=== PATIENT | male | born 1955 | race Caucasian/White ===

== ENCOUNTER 2023-01-19 07:31 | Day surgery (SDC) | payer MEDICARE, BC ==
[~2023-01-19 07:31] MED LIST: Dextrose 5%-0.45% NaCl 1,000 ML IV SCH; Sodium Chloride 0.9% 10 ML Syringe FLUSH PRN; Sodium Chloride 0.9% 10 ML Syringe FLUSH SCH
[2023-01-19] MEDS ORDERED: Midazolam 1 MG/ML 2 ML SDV ONE (08:31)
[2023-01-19] MEDS ORDERED: fentaNYL 100 MCG/2 ML SDV ONE (08:31)
[2023-01-19] MEDS ORDERED: fentaNYL 100 MCG/2 ML SDV IV ONE ×2 (08:35→08:36)
[2023-01-19] MEDS ORDERED: Midazolam 1 MG/ML 2 ML SDV IV ONE ×3 (08:36→08:44)
== END 2023-01-19 10:14 | disposition home or self-care (01) ==
LOC: DL.ENDO 07:31
PROVIDERS: ATTEND Internal Medicine Gastroenterology
DX: Z12.11 Encounter for screening for malignant neoplasm of colon (principal); D12.4 Benign neoplasm of descending colon; I10 Essential (primary) hypertension; E78.00 Pure hypercholesterolemia, unspecified; I25.10 Atherosclerotic heart disease of native coronary artery without angina pectoris; G47.33 Obstructive sleep apnea (adult) (pediatric); I49.3 Ventricular premature depolarization; F79 Unspecified intellectual disabilities; E66.09 Other obesity due to excess calories; Z68.36 Body mass index [BMI] 36.0-36.9, adult; Z79.899 Other long term (current) drug therapy
CPT/HCPCS: 45385; J2250; J3010; J7042

== ENCOUNTER 2024-05-20 23:39 | Emergency (ER) | payer MEDICARE, BC ==
[2024-05-21] MEDS: diphenhydrAMINE 50 MG Cap PO ONE (01:10)
== END 2024-05-21 01:25 | disposition home or self-care (01) ==
LOC: DL.ED 23:39
DX: L24.5 Irritant contact dermatitis due to other chemical products (principal); I10 Essential (primary) hypertension; E78.00 Pure hypercholesterolemia, unspecified; I25.10 Atherosclerotic heart disease of native coronary artery without angina pectoris; Z86.16 Personal history of COVID-19; Z79.82 Long term (current) use of aspirin; Z79.899 Other long term (current) drug therapy; Z79.2 Long term (current) use of antibiotics; Z79.1 Long term (current) use of non-steroidal anti-inflammatories (NSAID)
CPT/HCPCS: 99283; Q0163